=== PATIENT | male | born 1940 | race Caucasian/White ===

== ENCOUNTER → 2023-04-15 10:02 | Outpatient (REF) | payer MEDICARE, SELFPAY | LOC: DHCBC MAIN 10:02 | PROVIDERS: ATTENDING PHYSICIAN Internal Medicine Cardiovascular Disease; FAMILY PHYSICIAN Family Medicine | DX: I35.0 Nonrheumatic aortic (valve) stenosis (principal); I35.1 Nonrheumatic aortic (valve) insufficiency | CPT/HCPCS: 93306 ==

== ENCOUNTER 2023-04-18 06:11 | Day surgery (SDC) | payer MEDICARE, SELFPAY ==
[2023-04-15 13:19] VITALS: BMI 26.4
[2023-04-18] VITALS (13 sets, daily range): BP systolic 128–164; BP diastolic 67–95; BMI 26.4
[2023-04-18] MEDS: CYSVIEW KIT 100 MG INTRAVES (06:50)
[2023-04-18] MEDS: NORMOSOL-R 1000 IV (07:09)
[2023-04-18] MEDS: SYRINGE NON-PUMP 50 ML IRRIG ×2 (08:33)
[2023-04-18] MEDS: SYRINGE NON-PUMP 50 MG IRRIG ×2 (08:33)
[2023-04-18] MEDS: DETROL LA 4 MG PO (09:10)
== END 2023-04-18 10:38 | disposition home or self-care (01) ==
LOC: SDS 06:11
PROVIDERS: ATTENDING PHYSICIAN Specialist
DX: C67.1 Malignant neoplasm of dome of bladder (principal)
CPT/HCPCS: 52235; C9738; 88307; 88341; 88342; A9589; J9201

== ENCOUNTER → 2023-09-03 15:43 | Outpatient (REF) | payer MEDICARE, SELFPAY | LOC: CLAB 15:43 | PROVIDERS: ATTENDING PHYSICIAN Specialist | DX: C67.9 Malignant neoplasm of bladder, unspecified (principal) | CPT/HCPCS: 88112 ==

== ENCOUNTER → 2024-04-08 15:21 | Outpatient (REF) | payer MEDICARE, SELFPAY | LOC: CLAB 15:21 | PROVIDERS: ATTENDING PHYSICIAN Specialist | DX: C67.9 Malignant neoplasm of bladder, unspecified (principal) | CPT/HCPCS: 88112 ==

== ENCOUNTER → 2024-08-12 09:30 | Outpatient (REF) | payer MEDICARE, SELFPAY | LOC: CLAB 09:30 | PROVIDERS: ATTENDING PHYSICIAN Specialist | DX: C67.9 Malignant neoplasm of bladder, unspecified (principal) | CPT/HCPCS: 88112 ==